=== PATIENT | female | born 1935 | race Caucasian/White ===

== ENCOUNTER 2024-11-24 19:26 | Emergency (ER) | payer MEDICARE, OTHER ==
[~2024-11-24] VITALS: Ht 154.9 cm; Wt 64.5 kg
[2024-11-24 19:30] VITALS: TEMP 98.6
[2024-11-24 19:55] VITALS: BP 126/77; PULSE 60; RESP 16; O2SAT 97
[2024-11-24] MEDS ORDERED: GABA-1216 PO (20:13)
[2024-11-24] MEDS ORDERED: ACET-3385 PO (20:13)
[2024-11-24] MEDS ORDERED: FAMO20 PO (20:13)
[2024-11-24] MEDS ORDERED: OMEP-148 PO (20:13)
[2024-11-24] MEDS ORDERED: CITA-144 PO (20:13)
[2024-11-24] MEDS ORDERED: FOLI1CAP16 PO (20:13)
[2024-11-24] MEDS ORDERED: IBUP-1506 PO (20:13)
[2024-11-24] MEDS ORDERED: DONE-51 PO (20:13)
== END 2024-11-24 22:36 | disposition home or self-care (01) ==
LOC: EMS 19:26
DX: S16.1XXA Strain of muscle, fascia and tendon at neck level, initial encounter (principal); S09.90XA Unspecified injury of head, initial encounter; F03.93 Unspecified dementia, unspecified severity, with mood disturbance; F32.A Depression, unspecified; Z79.899 Other long term (current) drug therapy; W18.39XA Other fall on same level, initial encounter; Y93.89 Activity, other specified; Y92.89 Other specified places as the place of occurrence of the external cause; Y99.8 Other external cause status
CPT/HCPCS: 70450; 72125; 99284